=== PATIENT | male | born 1965 | race Caucasian/White ===

== ENCOUNTER 2018-06-11 07:53 | Inpatient (IN) | payer OTHER ==
[~2018-06-11] VITALS: Ht 177.8 cm; Wt 78.9 kg
[~2018-06-11 07:53] MED LIST: LEVO750T21 PO; NO HOME MEDS
[2018-06-11 08:27] LABS: BASOPHILS % (AUTO) 0 % (0-1); EOSINOPHILS # (AUTO) 0.1 X10'3 (0-0.9); EOSINOPHILS % (AUTO) 0.5 % (0-6); HEMATOCRIT 41.2 % (42.0-52.0); HEMOGLOBIN 14.5 g/dl (14.0-17.9); LYMPHOCYTES # (AUTO) 0.7 X10'3 (1.1-4.8); LYMPHOCYTES % (AUTO) 3.4 % (21-51); MEAN CORPUSCULAR HEMOGLOBIN 32.9 PG (27.0-31.0); MEAN CORPUSCULAR HGB CONC 35.2 % (33.0-36.5); MEAN CORPUSCULAR VOLUME 93.5 FL (78-98); MEAN PLATELET VOLUME 5.9 FL (7.4-10.4); MONOCYTES # (AUTO) 0.7 X10'3 (0-0.9); MONOCYTES % (AUTO) 3.3 % (2-12); NEUTROPHILS # (AUTO) 18.8 X10'3 (1.8-7.7); NEUTROPHILS % (AUTO) 92.8 % (42-75); PLATELET COUNT 262 X10'3 (140-440); RED CELL DISTRIBUTION WIDTH 13.5 % (11.5-14.5); WHITE BLOOD COUNT 20.3 X10'3 (4.5-11.0)
[2018-06-11] MEDS ORDERED: LORazepam 2 mg/ml vial IV ONE (08:35)
[2018-06-11] MEDS ORDERED: normal saline 1000ML IV soln IVB ONE (08:35)
[2018-06-11] MEDS ORDERED: morphine 4 MG/ML inj SYRINge IV ONE ×2 (08:35→11:00)
[2018-06-11 08:37] LABS: INR 1.1 INR; PARTIAL THROMBOPLASTIN TIME 31 SECONDS (22-32); PROTHROMBIN TIME 11.4 SECONDS (9.0-12.0)
[2018-06-11 08:42] LABS: ALANINE AMINOTRANSFERASE 30 U/L (12-78); ALBUMIN 3.6 G/DL (3.4-5.0); ALKALINE PHOSPHATASE 98 IU/L (46-116); ANION GAP 8 (8-16); ASPARTATE AMINO TRANSFERASE 20 U/L (10-37); BILIRUBIN,TOTAL 1.6 MG/DL (0.1-1.0); BLOOD UREA NITROGEN 14 MG/DL (7-18); BUN/CREATININE RATIO 13.2 (5.4-32.0); CALCIUM 8.6 MG/DL (8.5-10.1); CHLORIDE 99 MMOL/L (99-107); CREATININE 1.06 MG/DL (0.60-1.10); GLUCOSE 125 MG/DL (70-104); POTASSIUM 3.6 MMOL/L (3.5-5.1); SODIUM 135 MMOL/L (135-145); TOTAL PROTEIN 7.2 G/DL (6.4-8.2); eGFR 73 ML/MIN
[2018-06-11] MEDS: aspirin 81mg tab.chew PO ONE ×2 (08:49→09:04)
[2018-06-11 09:01] LABS: D-DIMER 0.27 MG/L FEU (0-0.50)
[2018-06-11] MEDS ORDERED: CefTRIAXone 2gm/D5W 50ml 50 ML IV ONE (09:05)
[2018-06-11] MEDS ORDERED: azithromycin/NS 500mg/250ml 250 ML IV ONE (09:05)
[2018-06-11] MEDS ORDERED: iohexol 300mg/ml 100ml inj. ONE (09:08)
[2018-06-11 09:16] LABS: ABG BASE EXCESS -0.2 mmol/L (-2.0-3.0); ABG HCO3 23.7 mmol/L (22.0-26.0); ABG OXYGEN SATURATION 95.4 % (95-98); ABG PCO2 (T) 36.6 mmHg (35.0-48.0); ABG PO2 (T) 71.9 mmHg (83-108); ALLEN'S TEST Positive; FCOHb 2.6 % (0.5-1.5); FLOW 8 L/min; FMetHb 0.1 % (0.3-1.12); FO2Hb 92.8 % (94-100); RESPIRATORY RATE (OBSERVED) 20 b/min
[2018-06-11 09:21] LABS: TOTAL CELLS COUNTED 100
[2018-06-11 09:22] LABS: PLATELET ESTIMATE NORMAL
[2018-06-11] MEDS ORDERED: normal saline 1000ml 1,000 ML IVB ONE (10:57)
[2018-06-11] MEDS ORDERED: normal saline 1000ml 1,000 ML IV SCH (11:23)
[2018-06-11] MEDS ORDERED: mag hydrox/Alum hydrox/simeth 30ml oral suspension PO PRN (11:25)
[2018-06-11] MEDS ORDERED: ondansetron/PF 4mg/2ml inj IV PRN (11:25)
[2018-06-11] MEDS ORDERED: acetaminophen 325mg tablet PO PRN (11:25)
[2018-06-11] MEDS ORDERED: magnesium hydroxide 30ml (MOM) UD suspension PO PRN (11:25)
[2018-06-11] MEDS ORDERED: morphine/NS 5 mg/ml CADD 50 ML IV SCH (12:10)
[2018-06-11] MEDS ORDERED: MORPHINE CADD 5 MG/ML 50ML IV SCH (12:12)
[2018-06-11] MEDS ORDERED: naloxone 0.4 mg/ml inj IV PRN (12:15)
[2018-06-11] MEDS ORDERED: CADD PCA waste documentation MC SCH (12:15)
[2018-06-11 13:00] VITALS: BP 103/63
[2018-06-11] MEDS: MORPHINE CADD 5 MG/ML 50ML IV SCH ×2 (13:00→13:29)
[2018-06-11] MEDS: ipratropium/albuterol 3ml nebule NEB PRN ×2 (14:19→19:30)
[2018-06-11] MEDS ORDERED: furosemide 10 MG/1 ML 10ml inj IV ONE (14:40)
[2018-06-11] MEDS ORDERED: ipratropium/albuterol 3ml nebule NEB PRN (14:40)
[2018-06-11 15:00] VITALS: BP 95/62
[2018-06-11] MEDS ORDERED: LORazepam 2 mg/ml vial IV PRN (16:55)
[2018-06-11] MEDS ORDERED: MORPHINE 2MG in 2ml NS syringe IV PRN (16:55)
[2018-06-11 19:00] VITALS: BP 115/66
[2018-06-11 19:26] LABS: ABG BASE EXCESS -2.1 mmol/L (-2.0-3.0); ABG HCO3 20.9 mmol/L (22.0-26.0); ABG OXYGEN SATURATION 97.3 % (95-98); ABG PCO2 (T) 30.5 mmHg (35.0-48.0); ABG PH (T) 7.453 (7.350-7.450); ALLEN'S TEST Positive; FCOHb 0.9 % (0.5-1.5); FMetHb 0.2 % (0.3-1.12); FO2Hb 96.2 % (94-100); PATIENT TEMPERATURE 36.7; RESPIRATORY RATE 14 b/min; RESPIRATORY RATE (OBSERVED) 23 b/min
[2018-06-11 19:54] LABS: BASOPHILS % (AUTO) 0 % (0-1); EOSINOPHILS % (AUTO) 0 % (0-6); HEMATOCRIT 38.6 % (42.0-52.0); HEMOGLOBIN 13.4 g/dl (14.0-17.9); LYMPHOCYTES # (AUTO) 0.9 X10'3 (1.1-4.8); LYMPHOCYTES % (AUTO) 3.9 % (21-51); MEAN CORPUSCULAR HEMOGLOBIN 32.6 PG (27.0-31.0); MEAN CORPUSCULAR HGB CONC 34.8 % (33.0-36.5); MEAN CORPUSCULAR VOLUME 93.6 FL (78-98); MEAN PLATELET VOLUME 6.1 FL (7.4-10.4); MONOCYTES # (AUTO) 0.9 X10'3 (0-0.9); MONOCYTES % (AUTO) 3.7 % (2-12); NEUTROPHILS # (AUTO) 21.5 X10'3 (1.8-7.7); NEUTROPHILS % (AUTO) 92.4 % (42-75); PLATELET COUNT 261 X10'3 (140-440); RED BLOOD COUNT 4.12 X10'6 (4.70-6.10); RED CELL DISTRIBUTION WIDTH 13.8 % (11.5-14.5); WHITE BLOOD COUNT 23.3 X10'3 (4.5-11.0)
[2018-06-11 20:12] LABS: ANION GAP 10 (8-16); BLOOD UREA NITROGEN 17 MG/DL (7-18); CALCIUM 7.7 MG/DL (8.5-10.1); CHLORIDE 100 MMOL/L (99-107); CREATININE 1.13 MG/DL (0.60-1.10); GLUCOSE 117 MG/DL (70-104); PHOSPHORUS 3.6 MG/DL (2.3-4.5); POTASSIUM 3.4 MMOL/L (3.5-5.1); SODIUM 135 MMOL/L (135-145); TOTAL CARBON DIOXIDE 24.7 MMOL/L (24-32); eGFR 68 ML/MIN
[2018-06-11] MEDS ORDERED: acetaminophen 325mg/10.15ml oral unit dose solution PO PRN (20:35)
[2018-06-11 21:00] VITALS: BP 103/66
[2018-06-11] MEDS: cefepime 2g/NS 100ml ADVANTAGE 100 ML IV SCH (21:09)
[2018-06-11] MEDS: lactobacillus rhamnosus 10,000 MMU CELLS/CAPSULE PO SCH (21:10)
[2018-06-11 22:00] VITALS: BP 99/64
[2018-06-11 23:00] VITALS: BP 99/72
[2018-06-12] VITALS (24 sets, daily range): BP systolic 94–143; BP diastolic 40–81
[2018-06-12] MEDS ORDERED: magnesium 4gm in 100ml NS 100 ML IV PRN (00:30)
[2018-06-12] MEDS ORDERED: potassium Cl 40MEQ/NS 500ml 500 ML IV PRN ×2 (00:30)
[2018-06-12] MEDS ORDERED: magnesium Cl slow-release 64mg tablet PO PRN (00:30)
[2018-06-12] MEDS ORDERED: potassium Cl 20 mEq SR tablet PO PRN (00:30)
[2018-06-12] MEDS ORDERED: magnesium 1gm/100ml D5W IVPB 50 ML IV PRN (00:30)
[2018-06-12 00:40] LABS: CLARITY,URINE CLEAR (Clear); COLOR,URINE YELLOW (Yellow); GLUCOSE, URINE NEGATIVE (Neg); KETONES,URINE NEGATIVE (Neg); LEUKOCYTE ESTERASE ,URINE NEGATIVE (Neg); NITRITES, URINE NEGATIVE (Neg); OCCULT BLOOD,URINE NEGATIVE (Neg); PROTEIN,URINE NEGATIVE (Neg); UROBILINOGEN,URINE 0.2 E.U/dL (0.2-1.0)
[2018-06-12 00:45] LABS: UA COLLECTION TYPE CLN CATCH MIDSTREAM
[2018-06-12 00:47] LABS: URINE AMPHETAMINE SCREEN POSITIVE (Neg); URINE BARBITUATE SCREEN NEGATIVE (Neg); URINE BENZODIAZEPINES SCREEN POSITIVE (Neg); URINE CANNABINOID SCREEN POSITIVE (Neg); URINE COCAINE SCREEN POSITIVE (Neg); URINE METHADONE SCREEN NEGATIVE (Neg); URINE OPIATE SCREEN POSITIVE (Neg); URINE PHENCYCLIDINE SCREEN NEGATIVE (Neg)
[2018-06-12] MEDS: potassium Cl 20 mEq SR tablet PO PRN (00:59)
[2018-06-12 05:03] LABS: ALBUMIN 2.9 G/DL (3.4-5.0); ANION GAP 12 (8-16); BLOOD UREA NITROGEN 19 MG/DL (7-18); BUN/CREATININE RATIO 18.8 (5.4-32.0); CALCIUM 8.4 MG/DL (8.5-10.1); CHLORIDE 100 MMOL/L (99-107); CREATININE 1.01 MG/DL (0.60-1.10); GLUCOSE 115 MG/DL (70-104); MAGNESIUM 1.5 MG/DL (1.5-2.4); POTASSIUM 3.7 MMOL/L (3.5-5.1); SODIUM 136 MMOL/L (135-145); TOTAL CARBON DIOXIDE 23.7 MMOL/L (24-32); eGFR 77 ML/MIN
[2018-06-12 05:23] LABS: BASOPHILS % (AUTO) 0.1 % (0-1); EOSINOPHILS % (AUTO) 0 % (0-6); HEMATOCRIT 39.8 % (42.0-52.0); HEMOGLOBIN 13.6 g/dl (14.0-17.9); LYMPHOCYTES % (AUTO) 4.5 % (21-51); MEAN CORPUSCULAR HEMOGLOBIN 32.3 PG (27.0-31.0); MEAN CORPUSCULAR HGB CONC 34.1 % (33.0-36.5); MEAN CORPUSCULAR VOLUME 94.6 FL (78-98); MEAN PLATELET VOLUME 6.9 FL (7.4-10.4); MONOCYTES # (AUTO) 1.2 X10'3 (0-0.9); MONOCYTES % (AUTO) 5.4 % (2-12); NEUTROPHILS # (AUTO) 20.3 X10'3 (1.8-7.7); PLATELET COUNT 221 X10'3 (140-440); RED BLOOD COUNT 4.21 X10'6 (4.70-6.10); RED CELL DISTRIBUTION WIDTH 13.8 % (11.5-14.5); WHITE BLOOD COUNT 22.5 X10'3 (4.5-11.0)
[2018-06-12] MEDS ORDERED: morphine 2 MG/ML inj. syringe ONE ×2 (05:26→07:18)
[2018-06-12] MEDS: dextrose 5%-1/2 normal saline 1,000 ML IV SCH ×2 (05:51→15:37)
[2018-06-12 06:22] LABS: NEUTROPHILS % (MANUAL) 53 % (42-75); TOTAL CELLS COUNTED 100
[2018-06-12 06:23] LABS: PLATELET ESTIMATE NORMAL
[2018-06-12] MEDS: enoxaparin 40mg/0.4ml syringe SUBCUT SCH (07:21)
[2018-06-12] MEDS: cefepime 2g/NS 100ml ADVANTAGE 100 ML IV SCH ×2 (07:21→20:38)
[2018-06-12] MEDS: lactobacillus rhamnosus 10,000 MMU CELLS/CAPSULE PO SCH ×2 (07:22→20:38)
[2018-06-12] MEDS: K, MAG and/or Phos replacement - Verify level? MC SCH (07:23)
[2018-06-12] MEDS ORDERED: levoFLOXACIN-Levaquin 750MG/D5 150 ML IV SCH (08:00)
[2018-06-12] MEDS: vancomycin/NS 1 GM ADD-VANTAGE 250 ML IV SCH ×2 (10:21→21:37)
[2018-06-12] MEDS ORDERED: traMADol 50MG tablet PO PRN (15:50)
[2018-06-12] MEDS ORDERED: traMADol 50MG tablet PO ONE (15:50)
[2018-06-12] MEDS: ipratropium/albuterol 3ml nebule NEB PRN (19:18)
[2018-06-12 20:51] LABS: ALANINE AMINOTRANSFERASE 23 U/L (12-78); ALBUMIN 2.6 G/DL (3.4-5.0); ALBUMIN/GLOBULIN RATIO 0.6 (1.1-1.5); ALKALINE PHOSPHATASE 81 IU/L (46-116); ANION GAP 7 (8-16); ASPARTATE AMINO TRANSFERASE 15 U/L (10-37); BILIRUBIN,TOTAL 0.9 MG/DL (0.1-1.0); BLOOD UREA NITROGEN 12 MG/DL (7-18); BUN/CREATININE RATIO 15.8 (5.4-32.0); CALCIUM 8.5 MG/DL (8.5-10.1); CHLORIDE 101 MMOL/L (99-107); CREATININE 0.76 MG/DL (0.60-1.10); GLUCOSE 114 MG/DL (70-104); MAGNESIUM 1.8 MG/DL (1.5-2.4); PHOSPHORUS 1.7 MG/DL (2.3-4.5); POTASSIUM 3.6 MMOL/L (3.5-5.1); SODIUM 136 MMOL/L (135-145); TOTAL CARBON DIOXIDE 27.7 MMOL/L (24-32); TOTAL PROTEIN 6.7 G/DL (6.4-8.2); eGFR > 90 ML/MIN
[2018-06-12] MEDS: folic acid inj. 2 MG, thiamine inj. 100 MG, MVI, adult No.4 with vit. K 10 ML in dextro... IV SCH ×8 (21:40→22:14)
[2018-06-12] MEDS: nicotine 21mg patch - 24 hr TD SCH ×2 (21:40→22:14)
[2018-06-13] VITALS (24 sets, daily range): BP systolic 101–147; BP diastolic 62–89
[2018-06-13] MEDS: dextrose 5%-1/2 normal saline 1,000 ML IV SCH ×3 (04:40→20:57)
[2018-06-13 05:43] LABS: PROTHROMBIN TIME 9.9 SECONDS (9.0-12.0)
[2018-06-13 05:45] LABS: ALANINE AMINOTRANSFERASE 24 U/L (12-78); ALBUMIN 2.4 G/DL (3.4-5.0); ALBUMIN/GLOBULIN RATIO 0.6 (1.1-1.5); ALKALINE PHOSPHATASE 86 IU/L (46-116); AMYLASE 24 U/L (25-115); ANION GAP 7 (8-16); ASPARTATE AMINO TRANSFERASE 14 U/L (10-37); BILIRUBIN,TOTAL 0.7 MG/DL (0.1-1.0); BLOOD UREA NITROGEN 11 MG/DL (7-18); BUN/CREATININE RATIO 13.8 (5.4-32.0); CALCIUM 8.5 MG/DL (8.5-10.1); CHLORIDE 103 MMOL/L (99-107); GLUCOSE 113 MG/DL (70-104); LIPASE 57 U/L (73-393); MAGNESIUM 1.9 MG/DL (1.5-2.4); PHOSPHORUS 1.3 MG/DL (2.3-4.5); POTASSIUM 3.7 MMOL/L (3.5-5.1); SODIUM 138 MMOL/L (135-145); TOTAL CARBON DIOXIDE 28.3 MMOL/L (24-32); TOTAL PROTEIN 6.4 G/DL (6.4-8.2); eGFR > 90 ML/MIN
[2018-06-13 06:47] LABS: HEMOGLOBIN 12.8 g/dl (14.0-17.9); MEAN CORPUSCULAR HEMOGLOBIN 32.1 PG (27.0-31.0); MEAN CORPUSCULAR HGB CONC 33.8 % (33.0-36.5); WHITE BLOOD COUNT 18.8 X10'3 (4.5-11.0)
[2018-06-13 06:48] LABS: BASOPHILS # (AUTO) 0.1 X10'3 (0-0.2); BASOPHILS % (AUTO) 0.3 % (0-1); EOSINOPHILS # (AUTO) 0.1 X10'3 (0-0.9); EOSINOPHILS % (AUTO) 0.8 % (0-6); LYMPHOCYTES # (AUTO) 1.2 X10'3 (1.1-4.8); LYMPHOCYTES % (AUTO) 6.2 % (21-51); MEAN PLATELET VOLUME 6.9 FL (7.4-10.4); MONOCYTES # (AUTO) 0.6 X10'3 (0-0.9); NEUTROPHILS # (AUTO) 16.9 X10'3 (1.8-7.7); NEUTROPHILS % (AUTO) 89.7 % (42-75); PLATELET COUNT 233 X10'3 (140-440); RED CELL DISTRIBUTION WIDTH 13.4 % (11.5-14.5)
[2018-06-13 07:18] LABS: TROPONIN I < 0.04 NG/ML (0.0-0.05)
[2018-06-13] MEDS: K, MAG and/or Phos replacement - Verify level? MC SCH (08:00)
[2018-06-13] MEDS: multivitamins, therapeutics tablet PO SCH (08:20)
[2018-06-13] MEDS: cefepime 2g/NS 100ml ADVANTAGE 100 ML IV SCH (08:20)
[2018-06-13] MEDS: lactobacillus rhamnosus 10,000 MMU CELLS/CAPSULE PO SCH ×2 (08:20→20:47)
[2018-06-13] MEDS: enoxaparin 40mg/0.4ml syringe SUBCUT SCH (08:20)
[2018-06-13] MEDS: folic acid 1mg tablet PO SCH (08:20)
[2018-06-13] MEDS: thiamine 100mg tablet PO SCH (08:20)
[2018-06-13] MEDS ORDERED: VANCOMYCIN LEVEL IV ONE (08:30)
[2018-06-13] MEDS: vancomycin/NS 1 GM ADD-VANTAGE 250 ML IV SCH (10:08)
[2018-06-13 10:25] LABS: TOTAL CELLS COUNTED 100
[2018-06-13 10:26] LABS: PLATELET ESTIMATE NORMAL
[2018-06-13] MEDS ORDERED: sodium phosphate inj. 30 MMOL in dextrose 5%-water 250 ML IV PRN (10:54)
[2018-06-13] MEDS ORDERED: sodium phosphate inj. 15 MMOL in dextrose 5%-water 150 ML IV PRN (10:54)
[2018-06-13] MEDS: LACTOSE-FREE FOOD 237ML (BOOST) PO SCH ×2 (13:00→18:09)
[2018-06-13] MEDS: cefuroxime axetil 250mg tablet PO SCH (20:47)
[2018-06-14] VITALS (10 sets, daily range): BP systolic 116–143; BP diastolic 66–84
[2018-06-14] MEDS: nicotine 21mg patch - 24 hr TD SCH (02:41)
[2018-06-14 05:57] LABS: BASOPHILS # (AUTO) 0.1 X10'3 (0-0.2); BASOPHILS % (AUTO) 0.5 % (0-1); EOSINOPHILS # (AUTO) 0.2 X10'3 (0-0.9); EOSINOPHILS % (AUTO) 1.3 % (0-6); HEMATOCRIT 38.3 % (42.0-52.0); HEMOGLOBIN 13.1 g/dl (14.0-17.9); LYMPHOCYTES # (AUTO) 1.4 X10'3 (1.1-4.8); LYMPHOCYTES % (AUTO) 10.1 % (21-51); MEAN CORPUSCULAR HEMOGLOBIN 32.2 PG (27.0-31.0); MEAN CORPUSCULAR HGB CONC 34.2 % (33.0-36.5); MEAN CORPUSCULAR VOLUME 94.3 FL (78-98); MEAN PLATELET VOLUME 6.5 FL (7.4-10.4); MONOCYTES # (AUTO) 0.7 X10'3 (0-0.9); MONOCYTES % (AUTO) 5.3 % (2-12); NEUTROPHILS # (AUTO) 11.1 X10'3 (1.8-7.7); NEUTROPHILS % (AUTO) 82.8 % (42-75); PLATELET COUNT 257 X10'3 (140-440); RED BLOOD COUNT 4.06 X10'6 (4.70-6.10); RED CELL DISTRIBUTION WIDTH 13.4 % (11.5-14.5); WHITE BLOOD COUNT 13.4 X10'3 (4.5-11.0)
[2018-06-14 06:08] LABS: INR 0.9 INR; PROTHROMBIN TIME 9.6 SECONDS (9.0-12.0)
[2018-06-14] MEDS: dextrose 5%-1/2 normal saline 1,000 ML IV SCH (06:19)
[2018-06-14 06:21] LABS: ALANINE AMINOTRANSFERASE 38 U/L (12-78); ALBUMIN 2.4 G/DL (3.4-5.0); ALBUMIN/GLOBULIN RATIO 0.6 (1.1-1.5); ALKALINE PHOSPHATASE 108 IU/L (46-116); AMYLASE 32 U/L (25-115); ANION GAP 8 (8-16); ASPARTATE AMINO TRANSFERASE 20 U/L (10-37); BILIRUBIN,TOTAL 0.5 MG/DL (0.1-1.0); BLOOD UREA NITROGEN 11 MG/DL (7-18); BUN/CREATININE RATIO 14.7 (5.4-32.0); CALCIUM 8.2 MG/DL (8.5-10.1); CHLORIDE 103 MMOL/L (99-107); CREATININE 0.75 MG/DL (0.60-1.10); GLUCOSE 109 MG/DL (70-104); LIPASE 77 U/L (73-393); MAGNESIUM 1.7 MG/DL (1.5-2.4); PHOSPHORUS 3.1 MG/DL (2.3-4.5); POTASSIUM 3.3 MMOL/L (3.5-5.1); SODIUM 140 MMOL/L (135-145); TOTAL CARBON DIOXIDE 29.3 MMOL/L (24-32); TOTAL PROTEIN 6.4 G/DL (6.4-8.2); eGFR > 90 ML/MIN
[2018-06-14 06:31] LABS: TOTAL CELLS COUNTED 100
[2018-06-14 06:32] LABS: PLATELET ESTIMATE NORMAL; POLYCHROMASIA FEW; TOXIC GRANULATION 2+
[2018-06-14] MEDS: LACTOSE-FREE FOOD 237ML (BOOST) PO SCH (08:00)
[2018-06-14] MEDS: K, MAG and/or Phos replacement - Verify level? MC SCH (08:00)
[2018-06-14] MEDS: multivitamins, therapeutics tablet PO SCH (08:46)
[2018-06-14] MEDS: folic acid 1mg tablet PO SCH (08:47)
[2018-06-14] MEDS: lactobacillus rhamnosus 10,000 MMU CELLS/CAPSULE PO SCH (08:47)
[2018-06-14] MEDS: cefuroxime axetil 250mg tablet PO SCH (08:48)
[2018-06-14] MEDS: potassium Cl 20 mEq SR tablet PO PRN (08:48)
[2018-06-14] MEDS: enoxaparin 40mg/0.4ml syringe SUBCUT SCH (08:49)
[2018-06-14] MEDS ORDERED: CEFU250T95 PO (10:26)
[2018-06-14] MEDS: thiamine 100mg tablet PO SCH (11:05)
== END 2018-06-14 11:18 | disposition home or self-care (01) | DRG 917 ==
LOC: ER 07:54 → PCU 3S 11:23 → CMPBEDREQ 19:31 → CICU 2S 20:30
PROVIDERS: ADMIT Family Medicine; ATTEND Internal Medicine Critical Care Medicine
PROC: 5A09357 Assistance with Respiratory Ventilation, Less than 24 Consecutive Hours, Continuous Positive Airway Pressure (ICD-10-PCS; principal; 2018-06-11)
DX: T43.621A Poisoning by amphetamines, accidental (unintentional), initial encounter (principal); A41.9 Sepsis, unspecified organism; J13 Pneumonia due to Streptococcus pneumoniae; N12 Tubulo-interstitial nephritis, not specified as acute or chronic; N17.9 Acute kidney failure, unspecified; F12.90 Cannabis use, unspecified, uncomplicated; F14.10 Cocaine abuse, uncomplicated; F15.10 Other stimulant abuse, uncomplicated; F17.210 Nicotine dependence, cigarettes, uncomplicated; E83.39 Other disorders of phosphorus metabolism; I27.20 Pulmonary hypertension, unspecified; F41.9 Anxiety disorder, unspecified; I08.1 Rheumatic disorders of both mitral and tricuspid valves; K80.20 Calculus of gallbladder without cholecystitis without obstruction; R09.02 Hypoxemia; F32.9 Major depressive disorder, single episode, unspecified; Z82.49 Family history of ischemic heart disease and other diseases of the circulatory system; Z79.899 Other long term (current) drug therapy; Y92.89 Other specified places as the place of occurrence of the external cause
CPT/HCPCS: 36415; 36600; 71045; 71260; 74176; 76775; 80048; 80053; 80202; 80305; 81003; 82150; 82803; 83605; 83690; 83735; 84100; 84145; 84484; 85018; 85025; 85379; 85610; 85730; 87040; 87070; 87077; 87186; 93005; 93306; 94640; 94660; 94760; 96365; 96368; 96375; 96376; 99285; A6213; A6449; C1758; J0456; J0692; J0696; J1650; J1940; J2060; J2270; J2274; J3370; J3411; J3490; J7030; J7060; Q9967

== ENCOUNTER 2024-09-19 22:42 | Emergency (ER) | payer BC, OTHER ==
[~2024-09-19] VITALS: Ht 177.8 cm; Wt 63.0 kg
[~2024-09-19 22:42] MED LIST changes: +CEFU250T95 PO; -LEVO750T21 PO
[2024-09-19] MEDS ORDERED: DYN500C PO (22:57)
[2024-09-19] MEDS: amox tr/potassium clavulanate 875/125mg TAB PO ONE (23:05)
[2024-09-19 23:12] VITALS: BP 170/90; PULSE 77; RESP 16; TEMP 98.8; O2SAT 100
[2024-09-19] MEDS ORDERED: amLODIPine 5mg tablet PO ONE (23:15)
== END 2024-09-19 23:13 | disposition home or self-care (01) ==
LOC: ER 22:43
DX: K11.20 Sialoadenitis, unspecified (principal); F19.10 Other psychoactive substance abuse, uncomplicated; F41.9 Anxiety disorder, unspecified; F32.A Depression, unspecified; F12.90 Cannabis use, unspecified, uncomplicated; I25.10 Atherosclerotic heart disease of native coronary artery without angina pectoris; Z79.2 Long term (current) use of antibiotics
CPT/HCPCS: 99283